=== PATIENT | male | born 1965 | race Caucasian/White ===

== ENCOUNTER 2018-07-27 12:13 | Outpatient (REF) | payer OTHER, SELFPAY ==
[2018-07-27 21:34] LABS: Abs Immature Grans 0.02 k/cumm (0.0-0.09); Absolute Basophil Count 0.02 k/cumm (0.0-0.2); Absolute Eosinophil Count 0.09 k/cumm (0.0-0.7); Absolute Lymphocyte Count 1.78 k/cumm (1.2-3.4); Absolute Monocyte Count 0.61 k/cumm (0.11-0.7); Absolute Neutrophil Count 3.98 k/cumm (1.2-6.7); Basophils % 0.3; Eosinophils % 1.4; Immature Grans % 0.3; Lymphocytes % 27.4; Mean Corp. HGB Concentration 33.3 g/dL (32.0-36.0); Mean Corpuscular Hemoglobin 31.1 pg (27.0-33.0); Mean Corpuscular Volume 93.4 fL (80-95); Mean Platelet Volume 10.6 fL (8.0-11.0); Monocytes % 9.4; Neutrophils % 61.2; Platelet Count 204 x1000/uL (130-400); RBC 5.14 m/cumm (4.50-6.00); RBC Distribution Width 12.6 % (11.8-14.1)
[2018-07-27 22:06] LABS: ALT 36 U/L (12-78); AST 25 U/L (15-37); Albumin 3.9 g/dL (3.4-5.0); Alkaline Phosphatase 113 U/L (46-116); Anion Gap 4.7 mmol/L (3-11); BUN 14 mg/dL (7-18); Bilirubin, Total 0.3 mg/dL (0.2-1.0); CO2 33.3 mmol/L (21.0-32.0); CREATININE 0.87 mg/dL (0.70-1.30); Calcium 9.2 mg/dL (8.5-10.1); Chloride 103 mmol/L (98-107); Glucose 87 mg/dL (70-100); Sodium 141 mmol/L (136-145); TROPONIN-I 8.2 ug/mL (4.0-12.0); Total Protein 7.7 g/dL (6.4-8.2)
== END 2018-07-27 12:33 ==
LOC: NCHCN 12:13
PROVIDERS: PCP Internal Medicine; Visit Provider Family Medicine
DX: R56.9 Unspecified convulsions (principal); Z51.81 Encounter for therapeutic drug level monitoring; Z79.899 Other long term (current) drug therapy
CPT/HCPCS: 80053; 80156; 85025

== ENCOUNTER 2020-02-10 16:09 | Outpatient (REF) | payer OTHER, SELFPAY ==
[2020-02-10 20:59] LABS: HCT 39.1 % (40.0-50.0); HGB 13.2 g/dL (13.5-17.5); MCH 30.9 pg (27.0-33.0); MCHC 33.8 % (32.0-36.0); MCV 91.6 fL (80-95); MPV 10.5 fL (8.0-11.0); Platelet Count 283 10^3/uL (130-400); RBC 4.27 10^6/uL (4.36-5.78); RDW 12.1 % (11.8-14.1); RDW-SD 40.5 fL; WBC 7.03 10^3/uL (4.4-10.8)
[2020-02-10 21:46] LABS: ALT 30 U/L (16-63); AST 22 U/L (15-37); Albumin 3.7 g/dL (3.4-5.0); Alkaline Phosphatase 89 U/L (46-116); Anion Gap 5.9 mmol/L (3-11); BUN 11 mg/dL (7-18); Bilirubin, Total 0.2 mg/dL (0.2-1.0); CO2 30.1 mmol/L (21.0-32.0); CREATININE 0.78 mg/dL (0.70-1.30); Calcium 8.4 mg/dL (8.5-10.1); Chloride 102 mmol/L (98-107); Glucose 90 mg/dL (74-106); Potassium 4.4 mmol/L (3.5-5.1); Sodium 138 mmol/L (136-145); Total Protein 6.8 g/dL (6.4-8.2)
== END 2020-02-10 16:29 ==
LOC: NCHCN 16:09
PROVIDERS: PCP Internal Medicine; Visit Provider Internal Medicine
DX: Z51.81 Encounter for therapeutic drug level monitoring (principal)
CPT/HCPCS: 80053; 85027

== ENCOUNTER 2020-02-29 07:45 | Outpatient (REF) | payer OTHER, SELFPAY ==
[2020-02-29 20:25] LABS: Abs Immature Grans 0.02 10^3/uL (0.0-0.06); Absolute Basophil Count 0.03 10^3/uL (0.0-0.2); Absolute Eosinophil Count 0.03 10^3/uL (0.0-0.7); Absolute Lymphocyte Count 1.45 10^3/uL (1.2-3.4); Absolute Monocyte Count 0.44 10^3/uL (0.1-0.8); Basophils % 0.5; Eosinophils % 0.5; Immature Grans % 0.4; Lymphocytes % 25.6; Monocytes % 7.8; Neutrophils % 65.2; Reticulocyte 0.9 % (0.5-2.4)
[2020-02-29 21:26] LABS: Total Iron Binding Capacity 278 ug/dL (250-450)
[2020-02-29 21:45] LABS: Calculated LDL 96 mg/dL (<100); Cholesterol 165 mg/dL (<200); Ferritin 100 ng/mL (26-388); HDL Cholesterol 60 mg/dL (40-60); TROPONIN-I 6.7 ug/mL (4.0-12.0); Triglyceride 49 mg/dL (<150); Vitamin B12 458 pg/mL (193-986)
== END 2020-02-29 08:05 ==
LOC: NCHCN 07:45
PROVIDERS: PCP Internal Medicine; Visit Provider Internal Medicine
DX: D64.9 Anemia, unspecified (principal); Z00.00 Encounter for general adult medical examination without abnormal findings; R56.9 Unspecified convulsions; Z51.81 Encounter for therapeutic drug level monitoring; Z13.220 Encounter for screening for lipoid disorders
CPT/HCPCS: 80061; 85027; 80156; 82607; 82728; 83550; 85007; 85045

== ENCOUNTER 2021-03-01 10:00 | Outpatient (REF) | payer OTHER, SELFPAY ==
[2021-03-01 18:21] LABS: Abs Immature Grans 0.03 10^3/uL (0.0-0.06); Absolute Basophil Count 0.03 10^3/uL (0.0-0.2); Absolute Eosinophil Count 0.04 10^3/uL (0.0-0.7); Absolute Lymphocyte Count 1.72 10^3/uL (1.2-3.4); Absolute Monocyte Count 0.71 10^3/uL (0.1-0.8); Absolute Neutrophil Count 5.15 10^3/uL (1.2-6.7); Basophils % 0.4; Eosinophils % 0.5; HCT 40.8 % (40.0-50.0); HGB 13.4 g/dL (13.5-17.5); Immature Grans % 0.4; Lymphocytes % 22.4; MCH 30.9 pg (27.0-33.0); MCHC 32.8 % (32.0-36.0); MPV 10.2 fL (8.0-11.0); Monocytes % 9.2; Neutrophils % 67.1; Nucleated RBC 0 %; Platelet Count 338 10^3/uL (130-400); RBC 4.34 10^6/uL (4.36-5.78); RDW 12.3 % (11.8-14.1); WBC 7.68 10^3/uL (4.4-10.8)
[2021-03-01 18:25] LABS: Bilirubin Negative (Negative); Blood Negative (Negative); Clarity Cloudy (Clear); Glucose Negative (Negative); Ketones Trace mg/dL (Negative); Leukocyte Esterase Negative (Negative); Nitrite Negative (Negative); Urobilinogen 0.2 EU/dL (Up TO 0.2)
[2021-03-01 18:34] LABS: Reticulocyte 0.8 % (0.5-2.4)
[2021-03-01 18:56] LABS: Iron 83 ug/dL (65-175)
[2021-03-01 18:58] LABS: ALT 30 U/L (16-63); AST 19 U/L (15-37); Albumin 3.7 g/dL (3.4-5.0); Alkaline Phosphatase 93 U/L (46-116); BUN 19 mg/dL (7-18); Bilirubin, Total 0.2 mg/dL (0.2-1.0); CREATININE 0.8 mg/dL (0.70-1.30); Calcium 8.7 mg/dL (8.5-10.1); Calculated LDL 93 mg/dL (<100); Chloride 104 mmol/L (98-107); Cholesterol 170 mg/dL (<200); Glucose 89 mg/dL (74-106); HDL Cholesterol 61 mg/dL (40-60); Potassium 5.1 mmol/L (3.5-5.1); Sodium 141 mmol/L (136-145); TSH (W/Ref FT4) 0.96 uIU/mL (0.36-3.74); Total Protein 7.1 g/dL (6.4-8.2); Triglyceride 80 mg/dL (<150)
[2021-03-04 09:27] LABS: PSA, Screening 0.5 ng/mL (0.0-3.5)
== END 2021-03-01 10:01 | disposition home or self-care (01) ==
LOC: NCHCN 10:00
PROVIDERS: PCP Internal Medicine; Visit Provider Nurse Practitioner Family
DX: Z00.00 Encounter for general adult medical examination without abnormal findings (principal); R56.9 Unspecified convulsions; Z51.81 Encounter for therapeutic drug level monitoring; Z12.5 Encounter for screening for malignant neoplasm of prostate
CPT/HCPCS: 80053; 80061; 84153; 81003; 83540; 84443; 85025; 85045

== ENCOUNTER 2022-04-14 15:45 | Outpatient (REF) | payer OTHER, SELFPAY ==
[2022-04-14 14:36] LABS: Abs Immature Grans 0.02 10^3/uL (0.0-0.06); Absolute Basophil Count 0.04 10^3/uL (0.0-0.2); Absolute Eosinophil Count 0.11 10^3/uL (0.0-0.7); Absolute Lymphocyte Count 1.48 10^3/uL (1.2-3.4); Absolute Monocyte Count 0.47 10^3/uL (0.1-0.8); Basophils % 0.7; HCT 42.1 % (40.0-50.0); Immature Grans % 0.4; Lymphocytes % 27.3; MCHC 33.3 % (32.0-36.0); MCV 93 fL (80-95); MPV 10.3 fL (8.0-11.0); Monocytes % 8.7; Neutrophils % 60.9; Platelet Count 286 10^3/uL (130-400); RBC 4.52 10^6/uL (4.36-5.78); RDW 12.5 % (11.8-14.1); Reticulocyte 0.9 % (0.5-2.4); WBC 5.42 10^3/uL (4.4-10.8)
[2022-04-14 14:48] LABS: Iron 123 ug/dL (65-175)
[2022-04-14 14:55] LABS: Bilirubin Negative (Negative); Blood Negative (Negative); Clarity Clear (Clear); Glucose Negative (Negative); Ketones Negative (Negative); Leukocyte Esterase Negative (Negative); Nitrite Negative (Negative); Urobilinogen 0.2 EU/dL (Up TO 0.2); pH 6.5 (5-8)
[2022-04-14 14:56] LABS: ALT 36 U/L (16-63); AST 25 U/L (15-37); Albumin 4.1 g/dL (3.4-5.0); Alkaline Phosphatase 115 U/L (46-116); Anion Gap 10.2 mmol/L (3-11); BUN 9 mg/dL (7-18); Bilirubin, Total 0.3 mg/dL (0.2-1.0); CO2 29.8 mmol/L (21.0-32.0); CREATININE 0.8 mg/dL (0.70-1.30); Calcium 8.8 mg/dL (8.5-10.1); Calculated LDL 96 mg/dL (<100); Chloride 104 mmol/L (98-107); Cholesterol 184 mg/dL (<200); Estimated GFR 103.87 (mL/min/1.73m2); Glucose 81 mg/dL (74-106); HDL Cholesterol 74 mg/dL (40-60); Potassium 4.4 mmol/L (3.5-5.1); Sodium 144 mmol/L (136-145); TSH (W/Ref FT4) 1.58 uIU/mL (0.36-3.74); Total Protein 7.6 g/dL (6.4-8.2); Triglyceride 72 mg/dL (<150)
[2022-04-15 09:32] LABS: TROPONIN-I 6.2 ug/mL (4.0-12.0)
== END 2022-04-14 15:46 | disposition home or self-care (01) ==
LOC: NCHCN 15:45
PROVIDERS: PCP Internal Medicine; Visit Provider Nurse Practitioner Family
DX: D64.9 Anemia, unspecified (principal); R56.9 Unspecified convulsions; Z51.81 Encounter for therapeutic drug level monitoring
CPT/HCPCS: 80053; 80061; 80156; 81003; 83540; 84443; 85025; 85045

== ENCOUNTER 2023-06-08 10:00 | Outpatient (REF) | payer OTHER, SELFPAY ==
[2023-06-08 14:35] LABS: HGB 14.4 g/dL (13.5-17.5); MCHC 33.5 % (32.0-36.0); MCV 93 fL (80-95); Platelet Count 303 10^3/uL (130-400); RBC 4.65 10^6/uL (4.36-5.78); RDW 12.3 % (11.8-14.1); RDW-SD 42.3 fL; WBC 5.56 10^3/uL (4.4-10.8)
[2023-06-08 14:49] LABS: Iron 140 ug/dL (65-175); Total Iron Binding Capacity 299 ug/dL (250-450); Transferrin Sat 47 % (20-55)
[2023-06-08 14:54] LABS: ALT 37 U/L (16-63); AST 35 U/L (15-37); Albumin 3.7 g/dL (3.4-5.0); Alkaline Phosphatase 95 U/L (46-116); Anion Gap 6.4 mmol/L (3-11); BUN 12 mg/dL (7-18); Bilirubin, Total 0.3 mg/dL (0.2-1.0); CO2 28.6 mmol/L (21.0-32.0); CREATININE 0.9 mg/dL (0.70-1.30); Chloride 102 mmol/L (98-107); Estimated GFR 99.62 (mL/min/1.73m2); Glucose 84 mg/dL (74-106); Sodium 137 mmol/L (136-145); Total Protein 7.8 g/dL (6.4-8.2)
[2023-06-09 16:04] LABS: TSH (W/Ref FT4) 1.58 uIU/mL (0.36-3.74)
== END 2023-06-08 10:01 | disposition home or self-care (01) ==
LOC: NCHCN 10:00
PROVIDERS: PCP Internal Medicine; Visit Provider Nurse Practitioner Family
DX: Z51.81 Encounter for therapeutic drug level monitoring (principal)
CPT/HCPCS: 80053; 85027; 83540; 83550; 84443; 85045

== ENCOUNTER 2024-09-12 15:32 | Outpatient (REF) | payer MEDICARE, SELFPAY ==
[2024-09-12 15:02] LABS: HCT 42.7 % (40.0-50.0); HGB 14.1 g/dL (13.5-17.5); MCH 30.8 pg (27.0-33.0); MCV 93 fL (80-95); MPV 10.3 fL (8.0-11.0); Platelet Count 255 10^3/uL (130-400); RBC 4.58 10^6/uL (4.36-5.78); RDW 12.3 % (11.8-14.1); RDW-SD 42.4 fL; WBC 6.33 10^3/uL (4.4-10.8)
[2024-09-12 16:01] LABS: ALT 39 U/L (16-63); AST 31 U/L (15-37); Albumin 4.1 g/dL (3.4-5.0); Alkaline Phosphatase 110 U/L (46-116); Anion Gap 5.2 mmol/L (3-11); BUN 8 mg/dL (7-18); Bilirubin, Total 0.3 mg/dL (0.2-1.0); CO2 31.8 mmol/L (21.0-32.0); CREATININE 0.8 mg/dL (0.70-1.30); Calcium 8.8 mg/dL (8.5-10.1); Chloride 105 mmol/L (98-107); Estimated GFR 101.95 (mL/min/1.73m2); Glucose 91 mg/dL (74-106); Potassium 5.1 mmol/L (3.5-5.1); Sodium 142 mmol/L (136-145); TSH (W/Ref FT4) 1.12 uIU/mL (0.36-3.74); Total Protein 7.7 g/dL (6.4-8.2)
== END 2024-09-12 15:33 | disposition home or self-care (01) ==
LOC: NCHCN 15:32
PROVIDERS: PCP Internal Medicine; Visit Provider Internal Medicine
DX: Z51.81 Encounter for therapeutic drug level monitoring (principal)
CPT/HCPCS: 80053; 85027; 84443

== ENCOUNTER 2024-12-27 14:12 | Outpatient (REF) | payer MEDICARE, SELFPAY ==
[2024-12-27 17:48] LABS: Calculated LDL 91 mg/dL (<100); Cholesterol 167 mg/dL (<200); HDL Cholesterol 62 mg/dL (>or=40); Triglyceride 71 mg/dL (<150)
[2024-12-28 09:27] LABS: PSA, Screening 0.6 ng/mL (<=3.5)
== END 2024-12-27 14:13 | disposition home or self-care (01) ==
LOC: NCHCN 14:12
PROVIDERS: PCP Internal Medicine; Visit Provider Nurse Practitioner Family
DX: Z13.220 Encounter for screening for lipoid disorders (principal); Z12.5 Encounter for screening for malignant neoplasm of prostate
CPT/HCPCS: 80061; 84153